=== PATIENT | female | born 1945 | race American Indian/Alaskan Native ===

== ENCOUNTER → 2024-07-11 10:51 | Outpatient (CLI) | payer MEDICARE, OTHER, SELFPAY ==
--- NOTE | 2024-07-11 10:56 | DI.RAD.S_ITS ---
PROCEDURE: XR DEXA AXIAL SKELETON INDICATIONS: OSTEOPOROSIS COMPARISON: None. FINDINGS: Lumbar Spine: Bone mineral density 1.133 g/cm2, T score 0.8. Left Hip: Bone mineral density 0.766 g/cm2, T score -1.4. Left Femoral Neck: Bone mineral density 0.668 g/cm2, T score -1.6. Right Hip: Bone mineral density 0.737 g/cm2, T score -1.7. Right Femoral Neck: Bone mineral density 0.24 g/cm2, T score -2.0. Fracture Risk Calculation (when applicable): 10-year fracture risk of a major osteoporotic fracture 21 percent and of a hip fracture 6.8 percent. (T score greater or equal to -1.0 to: NORMAL) (T score from -1.1 to -2.4: OSTEOPENIA) (T score less than or equal to -2.5: OSTEOPOROSIS) IMPRESSION: Osteopenia most prominent the right femoral neck. The Follow-up guidelines as follows: Osteoporosis: Consider a repeat DEXA and Vertebral Fracture Assessment (VFA) exam in 2 years or sooner if medically necessary, to reassess this patient's status. Osteopenia: Consider a repeat DEXA in 2-3 years to reassess this patient's status, or if there is a new clinical indication. Normal: Consider a repeat DEXA in 5 years or sooner, or if there is a new clinical indication. All treatment decisions require clinical judgment and consideration of individual patient factors, including patient preferences, comorbidities, previous drug use, risk factors not captured in the FRAX model (e.g., frailty, falls, vitamin D deficiency, increased bone turnover, interval significant decline in bone density ) and possible under- or over-estimation of fracture risk by FRAX. In addition, the NOF Guide recommends that FDA-approved medical therapies be considered in postmenopausal women and men age >= 50 years with a: * Hip or vertebral (clinical or morphometric) fracture * T-score of <=-2.5 at the spine or hip * Ten-year fracture probability by FRAX of >= 3% for hip fracture or >=20% for major osteoporotic fracture. People with diagnosed cases of osteoporosis or at high risk for fracture should have regular bone mineral density tests. For patients eligible for Medicare, routine testing is allowed once every 2 years. The testing frequency can be increased to one year for patients who have rapidly progressing disease, those who are receiving or discontinuing medical therapy to restore bone mass, or have additional risk factors. Dictated by: Malissa Merritt M.D. on 07/11/2024 at 14:39 Approved by: Malissa Merritt M.D. on 07/11/2024 at 14:40
== END ==
PROVIDERS: PCP Family Medicine; Referring Provider Family Medicine; Visit Provider Family Medicine
DX: Z00.00 Encounter for general adult medical examination without abnormal findings; M85.89 Other specified disorders of bone density and structure, multiple sites
CPT/HCPCS: 77080

== ENCOUNTER → 2025-01-26 11:47 | Outpatient (CLI) | payer MEDICARE, OTHER, SELFPAY ==
--- NOTE | 2025-01-26 11:50 | DI.CT.S_ITS ---
PROCEDURE: CT SOFT TISSUE NECK W CON INDICATIONS: Neck mass TECHNIQUE: After the administration of intravenous contrast, 3.0 mm axial sections acquired from the sella to the aortic arch. Additional oblique axial 3.0 mm sections acquired through the pharynx. 3 mm thick coronal and sagittal reformats were generated. For radiation dose reduction, the following was used: automated exposure control. COMPARISON: None. FINDINGS: Image quality: Excellent. Lymph nodes: No enlarged lymph nodes seen throughout the neck. Vessels: Visualized vasculature appears patent. Atherosclerotic vascular calcifications. Neck spaces: The oropharynx, nasopharynx, and pharynx demonstrate no mucosal lesions. The vocal cords, false vocal cords, pyriform sinuses, epiglottis, vallecula, and tongue base all appear normal. Extramucosal spaces appear unremarkable. Glands: The parotid and submandibular glands appear normal. Thyroid gland is atrophic. Miscellaneous: Marker is placed over the right lower anterior neck. No soft tissue abnormalities deep to the marker. Just inferior to the marker there is a prominent right sternoclavicular joint, likely secondary to osteoarthritic changes. Visualized brain and orbits appear normal. Lung apices appear clear. Superficial soft tissues appear normal. Partially visualized left chest wall pacemaker. Bones: No suspicious bony lesions. Visualized sinuses and mastoids appear unremarkable. Multilevel degenerative changes of the spine. IMPRESSION: Marker over the right lower anterior neck indicating the area of interest. No soft tissue abnormalities within the area of concern. Just inferior to the marker is a prominent sternoclavicular joint, likely secondary to osteoarthritic changes. Dictated by: Eric Anders M.D. on 01/29/2025 at 10:19 Approved by: Eric Anders M.D. on 01/29/2025 at 10:23
[2025-01-26 12:18] LABS: Estimated Glomerular Filt Rate > 60 mL/min (>60)
== END ==
PROVIDERS: PCP Family Medicine; Referring Provider Family Medicine; Visit Provider Family Medicine
DX: R22.1 Localized swelling, mass and lump, neck (principal)
CPT/HCPCS: 36415; 70491; 82565; Q9967

== ENCOUNTER 2025-05-03 16:29 | Emergency (ER) | payer MEDICARE, OTHER, SELFPAY ==
[2025-05-03 16:36] VITALS: BP 144/65; PULSE 58; RESP 18; TEMP 37; O2SAT 98; BMI 32.2
--- NOTE | 2025-05-03 17:51 | ED.FEMALEGU ---
HPI - Female Genitourinary <Rosetta Cardona PA-C - Last Filed: 05/03/25 19:49> General Chief complaint: Urogenital-Female Stated complaint: Swollen foot, immobile toes Time Seen by Provider: 05/03/25 17:51 Source: patient Mode of arrival: Ambulatory History of Present Illness HPI Narrative: Ms. Douglas is a pleasant 79-year-old female with a past medical history of CHF, AFib on warfarin s/p pacemaker, lupus, Sjogren's, fibromyalgia on pain management who presents to the emergency department for ?swollen foot, immobile toes, in addition to concern of UTI x 1 month. She is here with her daughter who contributes to the history. Patient states over the last 1 month she has been having urinary urgency, frequency and burning and was concerned for UTI but hoped it would go away on her own. She also has noticed increased swelling of her bilateral lower extremities and just yesterday noticed that her right 3rd toe is red. She is unsure if she injured it. She currently takes 20 mg of torsemide for her CHF and was told to double the dose if she has increased swelling or weight gain of 3 lb however patient has not weighed herself since March, today in the ED appears she is gained about 7 lb since then. She denies chest pain, shortness of breath, dizziness, lightheadedness, fevers, chills, nausea, vomiting, abdominal pain, flank pain. Related Data Allergies Allergy/AdvReac Type Severity Reaction Status Date / Time gabapentin Allergy Mild Verified 05/03/25 16:37 pregabalin (From Lyrica) Allergy Mild Verified 05/03/25 16:37 codeine AdvReac Mild Verified 05/03/25 16:37 Review of Systems <Rosetta Cardona PA-C - Last Filed: 05/03/25 19:49> Review of Systems ROS Unobtainable: All systems reviewed & are unremarkable except as noted in HPI and below Exam <Rosetta Cardona PA-C - Last Filed: 05/03/25 19:49> Narrative Exam Narrative: GENERAL: 79 year old patient appears stated age. Well-developed patient, in no acute distress. HEAD: Atraumatic. Normocephalic. EYES: No scleral icterus. No injection or drainage. NECK: Trachea midline. Cervical ROM intact. CARDIOVASCULAR: Regular rate and rhythm. RESPIRATORY: ?Nonlabored respirations. ?Speaking in clear, full sentences. ?Clear to auscultation. Breath sounds equal bilaterally. No wheezes, rales, or rhonchi. ? GASTROINTESTINAL: Abdomen soft, non-tender, nondistended. EXTREMITIES: 1+ BL LE edema and chronic darkening of skin on bilateral lower extremities. There is mild erythema on the distal tip of the right 3rd toe and tenderness to palpation of the toe. No streaking erythema or increased warmth. No swelling or drainage. Strong DP pulses bilaterally and brisk capillary refill in the toes. NEURO: AOx3. ?Clear speech. ?Moves all 4 extremities appropriately. SKIN: Right 3rd toe erythema otherwise no rashes or skin changes. Initial Vital Signs Initial Vital Signs: Vital Signs Temperature 98.6 F 05/03/25 16:36 Pulse Rate 58 L 05/03/25 16:36 Respiratory Rate 18 05/03/25 16:36 Blood Pressure 144/65 H 05/03/25 16:36 Pulse Oximetry 98 05/03/25 16:36 Oxygen Delivery Method Room Air 05/03/25 16:36 <Elian Jeff MD - Last Filed: 05/16/25 07:00> Initial Vital Signs Initial Vital Signs: Vital Signs Temperature 98.6 F 05/03/25 16:36 Pulse Rate 58 L 05/03/25 16:36 Respiratory Rate 18 05/03/25 16:36 Blood Pressure 144/65 H 05/03/25 16:36 Pulse Oximetry 98 05/03/25 16:36 Oxygen Delivery Method Room Air 05/03/25 16:36 Course <Rosetta Cardona PA-C - Last Filed: 05/03/25 19:49> Orders Ordered: Discontinued Medications Cephalexin HCl (Cephalexin 250 Mg Capsule) 500 mg PO NOW ONE Stop: 05/03/25 19:07 Last Admin: 05/03/25 19:12 Dose: 500 mg Documented By: GAGAN Ceftriaxone Sodium 1,000 mg/ (Sodium Chloride) 100 mls @ 200 mls/hr IV NOW ONE Stop: 05/03/25 18:59 Last Admin: 05/03/25 19:09 Dose: Not Given Documented By: GAGAN Vital Signs Vital signs: Vital Signs - 8 hr 05/03/25 16:36 05/03/25 19:39 Temperature 98.6 F Pulse Rate 58 L 61 Respiratory Rate 18 15 Blood Pressure 144/65 H 137/73 Pulse Oximetry 98 100 Oxygen Delivery Method Room Air Room Air <Elian Jeff MD - Last Filed: 05/16/25 07:00> Orders Ordered: Discontinued Medications Cephalexin HCl (Cephalexin 250 Mg Capsule) 500 mg PO NOW ONE Stop: 05/03/25 19:07 Last Admin: 05/03/25 19:12 Dose: 500 mg Documented By: GAGAN Ceftriaxone Sodium 1,000 mg/ (Sodium Chloride) 100 mls @ 200 mls/hr IV NOW ONE Stop: 05/03/25 18:59 Last Admin: 05/03/25 19:09 Dose: Not Given Documented By: GAGAN Vital Signs Vital signs: Vital Signs - 8 hr 05/03/25 16:36 05/03/25 19:39 Temperature 98.6 F Pulse Rate 58 L 61 Respiratory Rate 18 15 Blood Pressure 144/65 H 137/73 Pulse Oximetry 98 100 Oxygen Delivery Method Room Air Room Air MDM - Female Genitourinary <Rosetta Cardona PA-C - Last Filed: 05/03/25 19:49> Medical Records Medical records narrative: Minimal records on file. I did review prior imaging and a creatinine and GFR from 01/26/2025 which was normal. Lab Data 05/03/25 18:35 05/03/25 18:35 Labs: Lab Results 05/03/25 05/03/25 Range/Units 16:46 18:35 WBC 7.6 (4.5-11.0) X10^3/uL RBC 4.69 (4.0-5.2) X10^6/uL Hgb 13.9 (12.0-16.0) g/dL Hct 41.2 (36-46) % MCV 87.8 (80-100) fL MCH 29.5 (26-34) PG MCHC 33.6 (30-36) % RDW 14.1 (11.6-14.8) % Plt Count 219 (150-400) X10^3/uL Neut % (Auto) 41.9 L (50-75) % Lymph % (Auto) 48.6 H (25-40) % [place] % (Auto) 8.4 (3-14) % Eos % (Auto) 0.1 L (2-4) % Baso % (Auto) 1.0 (0-2) % Neut # (Auto) 3200 (0945-6810) /uL Lymph # (Auto) 3700 (0265-6893) /uL [place] # (Auto) 600 (0-900) /uL Eos # (Auto) 0 (0-450) /uL Baso # (Auto) 100 (0-100) /uL Sodium 140 (137-145) mmol/L Potassium 4.0 (3.4-5.1) mmol/L Chloride 104 (98-107) mmol/L Carbon Dioxide 27 (22-32) mmol/L BUN 21 H (7-17) mg/dL Creatinine 0.83 (0.52-1.04) mg/dL Estimated GFR > 60 (>60) mL/min BUN/Creatinine Ratio 25.3 H (6-22) Glucose 88 (70-99) mg/dL Calcium 9.4 (8.4-10.2) mg/dL Total Bilirubin 0.8 (0.2-1.3) mg/dL AST 36 (14-36) IU/L ALT 16 (<35) IU/L Alkaline Phosphatase 78 (38-126) U/L Total Protein 7.4 (6.3-8.2) g/dL Albumin 4.3 (3.5-5.0) g/dL Globulin 3.1 (1.7-4.1) g/dL Albumin/Globulin Ratio 1.4 (1.0-2.8) Urine RBC None seen (0-5/HPF) Urine WBC 30-100/hpf H (0-5/HPF) Ur Squamous Epith Cells 0-1 /hpf (0-5/HPF) Urine Bacteria Few (2-10) H (None) Ur Culture Indicated? Specimen cultured Micro UA Comment Vol Urine Centrifuged 10ml (spun) Urine Dip Bedside Urine Glucose Negative Bedside Urine Bilirubin - Negative Bedside Urine Ketone - Negative Urine Specific [place] 1.015 Bedside Urine Occult Blood ++ Bedside Urine pH 6.0 Bedside Urine Protein - Negative Bedside Urine Urobilinogen - Negative Bedside Urine Nitrite - Negative Bedside Urine Leukocytes + 70 Esterase MDM Narrative Medical decision making narrative: 79-year-old female with a past medical history of CHF, AFib on warfarin s/p pacemaker, lupus, Sjogren's, fibromyalgia on pain management who presents to the emergency department for ?swollen foot, immobile toes, in addition to concern of UTI x 1 month. Differential diagnosis includes but is not limited to CHF exacerbation, fluid overload, cellulitis, UTI, worsening renal function, etc. On exam the patient is in no acute distress, nontoxic-appearing, all vital signs within normal limits. She has mild bilateral lower extremity edema with a known history of CHF currently on torsemide however she has not been increasing her dose as directed because she was unaware of her weight gain. She is here today primarily for right 3rd toe redness in addition to the swelling however she is also concerned for UTI symptoms. Physical exam reveals clear lungs, abdomen soft and nontender mild erythema of the right 3rd toe with tenderness. We will obtain x-ray imaging of the foot as well as chest to rule out significant fluid overload in the lungs, loss obtain baseline CBC and CMP to evaluate renal function. Urinalysis consistent with UTI with 30-100 urine WBCs and few bacteria. Culture sent. Labs reassuring with a normal WBC count 7.6, hemoglobin 13.9 hematocrit 41.2. Normal sodium 140, potassium 4.0, BUN 21 creatinine 0.83. We will treat UTI and right 3rd toe cellulitis with Keflex 4 times a day x7 days. Chest x-ray is normal and the x-ray reveals no acute fractures or dislocations. Discussed all imaging and lab work results with the patient her daughter. Discussed plan for treatment of cellulitis and UTI with Keflex. Patient was previously recommended to double her dose of torsemide for lower extremity edema or weight gain greater than 3 lb I did recommend that she double her dose tomorrow. Recommended compression socks, elevation of legs, completion of full course of antibiotics. Discussed strict ED return precautions. Patient her daughter verbalized understanding of all information or happy with this plan, 1st dose of antibiotics given in the ED, she is stable for discharge home. <Elian Jeff MD - Last Filed: 05/16/25 07:00> Lab Data Labs: Lab Results 05/03/25 05/03/25 Range/Units 16:46 18:35 WBC 7.6 (4.5-11.0) X10^3/uL RBC 4.69 (4.0-5.2) X10^6/uL Hgb 13.9 (12.0-16.0) g/dL Hct 41.2 (36-46) % MCV 87.8 (80-100) fL MCH 29.5 (26-34) PG MCHC 33.6 (30-36) % RDW 14.1 (11.6-14.8) % Plt Count 219 (150-400) X10^3/uL Neut % (Auto) 41.9 L (50-75) % Lymph % (Auto) 48.6 H (25-40) % [place] % (Auto) 8.4 (3-14) % Eos % (Auto) 0.1 L (2-4) % Baso % (Auto) 1.0 (0-2) % Neut # (Auto) 3200 (3941-3210) /uL Lymph # (Auto) 3700 (4869-9510) /uL [place] # (Auto) 600 (0-900) /uL Eos # (Auto) 0 (0-450) /uL Baso # (Auto) 100 (0-100) /uL Sodium 140 (137-145) mmol/L Potassium 4.0 (3.4-5.1) mmol/L Chloride 104 (98-107) mmol/L Carbon Dioxide 27 (22-32) mmol/L BUN 21 H (7-17) mg/dL Creatinine 0.83 (0.52-1.04) mg/dL Estimated GFR > 60 (>60) mL/min BUN/Creatinine Ratio 25.3 H (6-22) Glucose 88 (70-99) mg/dL Calcium 9.4 (8.4-10.2) mg/dL Total Bilirubin 0.8 (0.2-1.3) mg/dL AST 36 (14-36) IU/L ALT 16 (<35) IU/L Alkaline Phosphatase 78 (38-126) U/L Total Protein 7.4 (6.3-8.2) g/dL Albumin 4.3 (3.5-5.0) g/dL Globulin 3.1 (1.7-4.1) g/dL Albumin/Globulin Ratio 1.4 (1.0-2.8) Urine RBC None seen (0-5/HPF) Urine WBC 30-100/hpf H (0-5/HPF) Ur Squamous Epith Cells 0-1 /hpf (0-5/HPF) Urine Bacteria Few (2-10) H (None) Ur Culture Indicated? Specimen cultured Micro UA Comment Vol Urine Centrifuged 10ml (spun) Urine Dip Bedside Urine Glucose Negative Bedside Urine Bilirubin - Negative Bedside Urine Ketone - Negative Urine Specific [place] 1.015 Bedside Urine Occult Blood ++ Bedside Urine pH 6.0 Bedside Urine Protein - Negative Bedside Urine Urobilinogen - Negative Bedside Urine Nitrite - Negative Bedside Urine Leukocytes + 70 Esterase Discharge Plan Departure Patient Disposition: Home Clinical Impression: Cellulitis of third toe of right foot, Bilateral leg edema Urinary tract infection Qualifiers: Urinary tract infection type: site unspecified Hematuria presence: without hematuria Qualified Code(s): N39.0 - Urinary tract infection, site not specified Instructions: DI for Cellulitis -- Adult, DI for Urinary Tract Infection (UTI) Activity Restrictions/Additional Instructions: Dear Ms. Douglas, Thank you for coming to the emergency department. Today you were evaluated for lower extremity swelling, redness of your right 3rd toe and UTI symptoms. Your lab work today was overall reassuring however your urinalysis did reveal a urinary tract infection. Your x-ray did not reveal any broken bones. At this time I am treating both the urinary tract infection and your toe cellulitis with Keflex 4 times a day x7 days. I would also like you to increase/double your torsemide dose tomorrow to help with your swelling. Please call your primary care doctor to schedule a follow up appointment as soon as possible. Please rest, elevate the legs, wear compression socks. Follow up with your primary care doctor. Return to the ER if you develop shortness of breath, inability to urinate, fevers or any other concerns. Please follow up with your primary care doctor within the next 2-3 days for ER follow-up. (If you do not have a PCP you can call [phone]. ?to schedule an appointment with an [facility] Primary Care Provider) IF YOU DEVELOP ANY NEW OR WORSENING SYMPTOMS, RETURN TO THE ER! Please read the attached instructions, they highlight more specific treatments and interventions for you at home. Thank you for letting me participate in your care, Rosetta Cardona PA-C Referrals: Saul Aragon MD [Primary Care Provider, [facility]] Stand Alone Forms: Patient Portal/API ED Sign-out <Elian Jeff MD - Last Filed: 05/16/25 07:00> Cosign ED Attending Cosignature Attestation: I was immediately available in the department for consultation. ?This documentation has been reviewed and I agree with assessment and plan. Supervised by Elian Jeff MD
[2025-05-03 18:02] LABS: Culture Indicated Urine Specimen Cultured
--- NOTE | 2025-05-03 18:04 | PC.NURSE ---
Pt reports she has had a hard time going to the bathroom and feels she does not empty her bladder for the last 3 weeks. Pt reports swollen legs and history of CHF. Pt states she is suppose to increase her turosemide if she gains weight. Pt weight noted 7lbs higher (219lbs) vs her last weight in march at (212lbs). Pt states she has not increased her turosemide. Right foot; middle toe red and tender right above. Hx of recurrent cellulitis. Toe pain and redness x4-5 days.
--- NOTE | 2025-05-03 18:08 | DI.RAD.S_ITS ---
PROCEDURE: XR FOOT RT MIN 3V INDICATIONS: right 3rd toe red; pt concern for injury TECHNIQUE: 3 views of the foot were acquired. COMPARISON: None. FINDINGS: Bones: No acute fractures or dislocations. No suspicious bony lesions. Mild forefoot osteoarthrosis. Soft tissues: Nonspecific soft tissue edema surrounding the lower leg and ankle and extending into the foot. IMPRESSION: Nonspecific soft tissue edema. No acute osseous abnormality. If there is continued clinical concern or persistent symptoms, repeat radiographs or cross-sectional imaging (e.g. CT, MRI) may be helpful for further evaluation. Approved by: Brandyn Garcia M.D. on 05/03/2025 at 19:11
--- NOTE | 2025-05-03 18:08 | DI.RAD.S_ITS ---
PROCEDURE: XR CHEST 1V INDICATIONS: LE edema TECHNIQUE: One view of the chest was acquired. COMPARISON: None. FINDINGS: Surgical changes and devices: Cardiac pacemaker is seen with pulse generator in the left chest. Lungs and pleura: Lungs are clear. No pleural effusions or pneumothorax. Mediastinum: Mediastinal contours appear normal. Heart size is normal. Bones and chest wall: No suspicious bony lesions. Overlying soft tissues appear unremarkable. IMPRESSION: No acute cardiopulmonary abnormality is seen. Approved by: Brandyn Garcia M.D. on 05/03/2025 at 19:09
[2025-05-03 18:43] LABS: Add Manual Diff / Slide Review NO; Hematocrit 41.2 % (36-46); Hemoglobin 13.9 g/dL (12.0-16.0); Lymphocytes Absolute Auto 3700 /uL (1100-4500); Mean Corpuscular HGB Conc 33.6 % (30-36); Mean Corpuscular Hemoglobin 29.5 PG (26-34); Mean Corpuscular Volume 87.8 fL (80-100); Platelet Count 219 X10^3/uL (150-400)
[2025-05-03 18:55] LABS: Alanine Aminotransferase 16 IU/L (<35); Albumin 4.3 g/dL (3.5-5.0); Albumin Globulin Ratio 1.4 (1.0-2.8); Alkaline Phosphatase 78 U/L (38-126); Blood Urea Nitrogen 21 mg/dL (7-17); Calcium 9.4 mg/dL (8.4-10.2); Carbon Dioxide 27 mmol/L (22-32); Chloride 104 mmol/L (98-107); Estimated Glomerular Filt Rate > 60 mL/min (>60); Globulin 3.1 g/dL (1.7-4.1); Glucose 88 mg/dL (70-99); HEMOLYSIS 39 (0-50); Potassium 4.0 mmol/L (3.4-5.1); Sodium 140 mmol/L (137-145); Total Protein 7.4 g/dL (6.3-8.2)
[2025-05-03 19:39] VITALS: BP 137/73; PULSE 61; RESP 15; O2SAT 100
== END 2025-05-03 19:40 | disposition home or self-care (01) ==
PROVIDERS: Emergency Provider Physician Assistant; PCP Family Medicine
DX: L03.031 Cellulitis of right toe (principal); R60.0 Localized edema; I50.9 Heart failure, unspecified; N39.0 Urinary tract infection, site not specified; Z79.01 Long term (current) use of anticoagulants
CPT/HCPCS: 71045; 73630; 80053; 81003; 81015; 85025; 87077; 87086; 87186; 99283; 99284

== ENCOUNTER → 2025-07-06 10:11 | Outpatient (CLI) | payer MEDICARE, OTHER, SELFPAY ==
--- NOTE | 2025-07-06 10:14 | DI.US.S_ITS ---
PROCEDURE: US RENAL COMPLETE INDICATIONS: CHRONIC KIDNEY DISEASE TECHNIQUE: Real-time scanning was performed of the kidneys and bladder, with image documentation. COMPARISON: None. FINDINGS: Suboptimal imaging exam given patient body habitus and bowel gas. Kidneys: Kidneys are mildly atrophic. Right kidney measures 9.0 cm long; left kidney measures 9.8 cm long. Right renal cortical thickness is 1.2 cm; left renal cortical thickness is 1.4 cm. Renal cortical echotexture is normal. No hydronephrosis or nephrolithiasis. No suspicious solid mass lesions. Bladder: Pre-void and postvoid bladder volumes were not measured given absent patient preparation. The ureteral jets were not visualized. The imaged bladder demonstrates a volume of 6.5 cc. Miscellaneous: No free pelvic fluid. IMPRESSION: Suboptimal imaging exam given patient body habitus and bowel gas. Kidneys are mildly atrophic. No hydronephrosis. No significant sonographic abnormality of the visualized kidneys otherwise. Dictated by: Malika Eason M.D. on 07/07/2025 at 21:42 Approved by: Malika Eason M.D. on 07/07/2025 at 21:46
== END ==
PROVIDERS: PCP Family Medicine; Referring Provider Family Medicine; Visit Provider Family Medicine
DX: N18.31 Chronic kidney disease, stage 3a (principal); N26.1 Atrophy of kidney (terminal)
CPT/HCPCS: 76770